=== PATIENT | male | born 1960 | race Caucasian/White ===

== ENCOUNTER 2018-01-02 08:39 | Day surgery (SDC) | payer MEDICARE ==
[2017-12-30 12:10] VITALS: BMI 25.3
[~2018-01-02 08:39] MED LIST: Bupivacaine 0.25% 20 ML INJ IJ ONE; Lidocaine/Epinephrine 1% 1:100000 10 ML IJ ONE; ceFAZolin 1 gm FROZEN Premix 0 GM/0 ML ML IVPB ONE
--- NOTE | 2018-01-02 10:58 | PCM.SURG1 ---
Surgeon's Initial Post Op Note - Surgeon's Notes Surgeon: Dr. Jean Technical Rep: Dr. Gomez Type of Anesthesia: Local Pre-Operative Diagnosis: Mass of Right chest and mole Left abdominal wall Operative Findings: See operative report Post-Operative Diagnosis: Same Operation Performed: Excision of Lipoma from R chest & wide local excision of mole on Left abdominal wall Specimen/Specimens Removed: mass R chest and mole L abdominal wall Estimated Blood Loss: EBL {In ML}: 5 Blood Products Given: N/A Drains Used: No Drains Post-Op Condition: Good Date of Surgery/Procedure: 01/02/18 Time of Surgery/Procedure: 10:59
[2018-01-02 11:19] VITALS: BP 119/65; PULSE 63; RESP 18; TEMP 97.7; O2SAT 100
--- NOTE | 2018-01-04 03:14 | OP ---
PROCEDURE DATE: 01/02/2018 PREOPERATIVE DIAGNOSES: 1. Lipoma of the right upper chest. 2. Mole of the left lower chest. POSTOPERATIVE DIAGNOSES: 1. Lipoma of the right upper chest. 2. Mole of the left lower chest. PROCEDURES DONE: 1. Excision of the lipoma of the right upper chest, 3 x 3 cm in size. 2. Layered closure of the wound of the right upper chest, 3 x 2 cm in size. 3. Wide local excision of the mole of the left lower chest, 1 x 0.5 cm in size. ANESTHESIA: Local anesthesia. ESTIMATED BLOOD LOSS: Around 10 mL. DRAIN: None. PATHOLOGY: Lipoma of the right upper chest and mole of the left lower chest were sent for pathology. COMPLICATIONS: None. INTRAOPERATIVE FINDINGS: The patient had an approximately 3 x 3 cm lipoma of the right upper chest and an approximately 0.5 x 0.5 cm mole of the left lower chest. DESCRIPTION OF PROCEDURE: On intraoperative steps, this 57-year-old male was diagnosed with a lipoma of the right upper chest and a mole of the left lower chest, and the patient was consented for the excision of both. Brought to the OR, placed supine on the operating table. After prepping and draping the right upper chest and left lower chest, local anesthesia was injected. The incision was made, upper and lower flap was created on the right upper chest, and the dissection was carried down deep up to the fascia and muscles, and the lipoma was completely excised. It was sent off the table for the pathology. The wound was irrigated and the defect was closed in multiple layers; the deep subcu with 3-0 Vicryl and the skin with 4-0 Monocryl and dry sterile dressing was applied. Now, an elliptical incision was made surrounding the mole. Approximately 1 x 0.5 cm size of the mole and surrounding skin was excised and it was sent off the table for the pathology. The wound was closed in one layer, the skin with 4-0 Monocryl, and a dry sterile dressing was applied. The patient tolerated the procedure well. Count of instrument was correct. There was no apparent complication. The patient was sent to the post anesthesia care unit in stable condition. Otf Jean MD
== END 2018-01-02 11:40 | disposition home or self-care (01) ==
LOC: C.SDS 08:39
PROVIDERS: ATTEND Surgery Surgical Critical Care
DX: D22.5 Melanocytic nevi of trunk (principal); D17.1 Benign lipomatous neoplasm of skin and subcutaneous tissue of trunk